=== PATIENT | male | born 1985 ===

== ENCOUNTER 2019-04-26 11:25 | Emergency (ER) | payer BC, SELFPAY ==
[2019-04-26 11:35] VITALS: BP 125/80; PULSE 78; RESP 18; TEMP 36.6; O2SAT 100
--- NOTE | 2019-04-26 12:48 | ED.NECK ---
HPI - Neck Pain/Injury General Chief Complaint: Neck Pain/Injury Stated Complaint: neck pain Time Seen by Provider: 04/26/19 12:48 Source: patient and RN notes reviewed Mode of arrival: ambulatory Limitations: no limitations History of Present Illness HPI Narrative: 34 year old male who presents to [facility] care with complaints of acute neck pain posterior aspect since with no known injury to neck. Patient states that pain has increased in the past 2 days and he went to the chiropractor yesterday and had heat and massage and adjustment with no decrease in his pain.Patient has strong handgrips and full mobility of bilaterally upper extremities admits to some discomfort radiating into left arm but severe pain stated at posterior neck.Patient has strong pulses to bilateral upper extremities with no numbness or tingling to arms or hands verbalized. Patient states that he has been taking Aleve and using heat to neck but continues to be in alot of pain and can't sleep. MD complaint: neck pain Onset (ago): day(s) (since ) Place: other (no known injury) Severity: severe Severity scale (1-10): 7 Duration: constant and progressively worsening Relieving factors: none Exacerbating factors: movement of neck Context: recent chiropractic manipulation and other (states no known injury prior to start of pain) Associated symptoms: other (some pain radiates at times to left arm) Treatments prior to arrival: naproxen and heat therapy Related Data Allergies Allergy/AdvReac Type Severity Reaction Status Date / Time No Known Allergies Allergy Verified 04/26/19 11:27 Review of Systems Review of Systems: Narrative: CONSTITUTIONAL: Denies fever, chills, or sweats. EYES: Denies visual changes, redness, or discharge. ENT: Denies rhinorrhea, congestion, sore throat, or otalgia. CARDIOVASCULAR: Deniies any chest pain, palpitations, or edema. RESPIRATORY: Denies cough or dyspnea. GASTROINTESTINAL: Denies abdominal pain, nausea, vomiting, or diarrhea. GENITOURINARY: Denies dysuria or hematuria. SKIN: Denies rash or itching. MUSCULOSKELETAL: Reports cervical spine pain with some pain to left arm. no other joint pain, or myalgia. NEUROLOGIC: Denies headache, numbness, or weakness. PSYCHIATRIC: Denies anxiety or depression. All systems reviewed & are unremarkable except as noted in HPI and below PMFSH Past Medical History Medical History (Updated 04/29/19 @ 20:21 by Claribel Wyatt NP) Herniation of cervical intervertebral disc with radiculopathy Family History Family History Other Diabetes mellitus Hypertension Social History Social History Smoking status: Never smoker Second hand tobacco smoke exposure: No Alcohol intake: current Gender identity (if verbalized by the patient): Male Comments At time of signature, agree with nursing past medical, surgical, social and family history. There is no relevant family history pertinent to the presenting complaint Exam Narrative: Exam Narrative: GENERAL: Well-appearing, well-nourished, and in acute distress. HEAD: Normocephalic, atraumatic. EYES: PERRLA and EOMI. ENT: Nares clear, no rhinorrhea or epistaxis. Mucous membranes moist. NECK: Supple.increase pain with movement of neck,pain posterior region middle with tightness to muscles noted, denies any known injury, some radiation of pain to left arm, strong handgrips bilaterally. CHEST: Clear to auscultation. No respiratory distress. HEART: Regular rate and rhythm. No murmur heard. Normal peripheral pulses. ABDOMEN: Soft, nontender, nondistended, normal active bowel sounds. EXTREMITIES: Normal range of motion. No edema. SKIN: Warm, dry, no rash. NEURO: No focal deficits. Alert and oriented x3. Course Vital Signs Vital signs: Vital Signs Temperature 36.6 C 04/26/19 11:35 Pulse Rate 78 04/26/19 11:35 Respiratory R
== END 2019-04-26 13:05 | disposition home or self-care (01) ==
PROVIDERS: Emergency Provider Registered Nurse; PCP Internal Medicine
DX: S16.1XXA Strain of muscle, fascia and tendon at neck level, initial encounter (principal); X58.XXXA Exposure to other specified factors, initial encounter
CPT/HCPCS: 99213; G0463

== ENCOUNTER 2021-02-23 08:06 | Outpatient (RCR) | payer BC, SELFPAY ==
[2021-02-23 08:35] VITALS: BP 148/90; PULSE 94; RESP 20; TEMP 36.4; O2SAT 99
[2021-02-23] MEDS: diphenhydrAMINE HCl CAP 25 MG CAPSULE PO (08:39)
[2021-02-23] MEDS: ACETAMINOPHEN 325 MG TABLET 650 MG PO (08:39)
[2021-02-23] MEDS: FAMOTIDINE 20 MG TABLET PO (08:39)
[2021-02-23 10:04] VITALS: BP 131/86
--- NOTE | 2021-02-24 08:43 | PC.NURSE ---
Called Mr Kirkland, he said he is doing fine this morning, only has a slight headache. He has no questions at this time.
== END 2021-02-23 17:00 ==
LOC: AMCINF 08:06
PROVIDERS: PCP Nurse Practitioner Family; Visit Provider Internal Medicine Hematology & Oncology
DX: U07.1 COVID-19 (principal)
CPT/HCPCS: A9270; M0245; Q0245

== ENCOUNTER 2023-09-19 15:33 | Emergency (ER) | payer BC, SELFPAY ==
--- NOTE | ~2023-09-19 | XR_ITS ---
EXAMINATION: XR chest 2V DATE: 09/19/2023 15:50 INDICATION: Chest pain. TECHNIQUE: Frontal and lateral views of the chest were obtained. COMPARISON: None. FINDINGS: There is no pneumonia, pleural effusion, or pneumothorax. The heart size is normal. There a re changes of disc replacement in cervical spine. IMPRESSION: 1. No acute cardiopulmonary disease. Reviewed, dictated and finalized at location E.
--- NOTE | 2023-09-19 15:34 | ECG_ITS ---
Test Date: 2023-09-19 15:42:13 Measurements Intervals [place] Rate: 123 P: 50 VT: 151 QRS: 37 QRSD: 108 T: 24 QT: 302 QTc: 434 Interpretive Statements SINUS TACHYCARDIA DELAYED PRECORDIAL R/S TRANSITION CONSIDER INFERIOR INFARCT, AGE INDETERMINATE ABNORMAL ECG No previous ECG available for comparison Electronically Signed On 09-19-2023 15:51:06 CDT by Osman Garrison D.O.
[2023-09-19 15:37] VITALS: BP 148/86; PULSE 126; RESP 18; TEMP 36.2; O2SAT 98
[2023-09-19 15:54] LABS: Basophils Percent Auto 0.5 % (0.2-1.2); Eosinophils Absolute Auto 0.1 K/mm3 (0-0.3); Eosinophils Percent Auto 0.7 % (0-4.4); Hematocrit 47.5 % (42.0-52.0); Hemoglobin 16.4 g/dL (14.0-18.0); Immature Granulocyte Absolute 0.06 K/mm3 (0.00-0.031); Immature Granulocyte Percent A 0.7 % (0-0.5); Lymphocytes Absolute Auto 2.19 K/mm3 (0.9-3.2); Lymphocytes Percent Auto 27.3 % (18.3-44.2); Mean Corpuscular HGB Conc 34.5 g/dl (32-36); Mean Corpuscular Hemoglobin 29.9 pg (26-34); Mean Corpuscular Volume 86.7 fl (80-100); Mean Platelet Volume 10.5 fl (7.4-10.4); Monocytes Absolute Auto 0.5 K/mm3 (0.1-0.6); Monocytes Percent Auto 5.9 % (2.6-8.5); Neutrophils Absolute Auto 5.2 K/mm3 (1.3-6.7); Neutrophils Percent Auto 64.9 % (45.5-73.1); Platelet Count Result 192 k/mm3 (150-375); Red Blood Count 5.48 M/mm3 (4.6-6.20); Red Cell Distribution Width 12.3 % (11.5-14.5)
[2023-09-19 16:04] LABS: Alanine Aminotransferase 55 U/L (6-50); Albumin Level 4.8 g/dL (3.5-5.1); Alkaline Phosphatase 58 U/L (38-126); Anion Gap 14 mmol/L (4-12); Aspartate Amino Transferase 38 U/L (17-59); Bilirubin,Total 0.8 mg/dL (0.2-1.3); Blood Urea Nitrogen 14 mg/dL (9-20); Calcium 9.2 mg/dL (8.4-10.2); Carbon Dioxide 27 mmol/L (22-30); Chloride 99 mmol/L (98-107); Estimated CRCL calculation 142 ml/min; Estimated Glomerular Filt Rate > 60; Glucose 158 mg/dL (65-110); Lipase 104 U/L (23-300); Potassium 3.6 mmol/L (3.4-5.0); Sodium 140 mmol/L (137-145)
[2023-09-19 16:05] LABS: INR 0.9; Prothrombin Time 12.9 Seconds (11.1-14.7)
[2023-09-19 16:06] LABS: Partial Thromboplastin Time 26.2 Seconds (22.3-36.8)
[2023-09-19 16:10] VITALS: PULSE 111
[2023-09-19 16:15] LABS: Troponin I < 0.012 ng/mL (0.000-0.034)
[2023-09-19] MEDS: KETOROLAC 30 MG/ML VIAL (*BKC) IV PUSH (16:36)
[2023-09-19 16:37] VITALS: BP 129/88; PULSE 112; RESP 15; O2SAT 98
[2023-09-19] MEDS: ASPIRIN 81 MG CHEWABLE TABLET 324 MG PO (16:37)
[2023-09-19 16:41] LABS: D Dimer 0.33 ug/mL (<0.48)
--- NOTE | 2023-09-19 17:29 | ED.GENADULT ---
HPI - General Adult General Chief complaint: Chest Pain Stated complaint: chest tightness Time Seen by Provider: 09/19/23 16:09 History of Present Illness HPI narrative: Manish Kirkland is 38 y/o male with no PMHx who presents with reports of having onset of left sided chest tightness that might of moved down his left arm while he was driving today. He states that now the pain has improved rates the severity at a 1 o 2 / 10. states he felt a little short of breath No recent illness / no PMHx / not on any medications Related Data Home Medications Medication Instructions Recorded Confirmed No Home Medications 02/23/21 02/23/21 Allergies Allergy/AdvReac Type Severity Reaction Status Date / Time No Known Allergies Allergy Verified 09/19/23 16:10 Review of Systems Review of Systems: CONSTITUTIONAL: Denies fever, chills, or sweats. EYES: Denies visual changes, redness, or discharge. ENT: Denies rhinorrhea, congestion, sore throat, or otalgia. CARDIOVASCULAR: + chest tightness that started while driving today no palpitations, or edema. RESPIRATORY: Denies cough, reports feeling a little short of breath earlier during event GASTROINTESTINAL: Denies abdominal pain, nausea, vomiting, or diarrhea. GENITOURINARY: Denies dysuria or hematuria. SKIN: Denies rash or itching. MUSCULOSKELETAL: Denies back pain, joint pain, or myalgia. NEUROLOGIC: Denies headache, numbness, dizziness, or weakness. PSYCHIATRIC: Denies anxiety or depression. PMFSH Past Medical History Medical History Herniation of cervical intervertebral disc with radiculopathy Family History Family History Other Diabetes mellitus Hypertension Social History Social History Smoking status: Never smoker Second hand tobacco smoke exposure: No Alcohol intake: current Gender identity (if verbalized by the patient): Male Spiritual care concerns: No Exam Narrative: GENERAL: Well-appearing, well-nourished, and in no acute distress. HEAD: Normocephalic, atraumatic. EYES: PERRLA and EOMI. ENT: Nares clear, no rhinorrhea or epistaxis. Mucous membranes moist. Oropharynx without tonsillar hypertrophy exudate or other lesions. NECK: Supple. No adenopathy or masses. No carotid bruits or JVD CHEST: Clear to auscultation. No respiratory distress. No wheezes rales or rhonchi HEART: Regular rate and rhythm. No murmur heard. Normal peripheral pulses. ABDOMEN: Soft, nontender, nondistended, normal active bowel sounds. EXTREMITIES: Normal range of motion. No edema. SKIN: Warm, dry, no rash. NEURO: No focal deficits. Alert and oriented x3. PSYCH: Normal mood and affect. Course Vital Signs Vital signs: Vital Signs Temperature 36.2 C L 09/19/23 15:37 Pulse Rate 126 H 09/19/23 15:37 Respiratory Rate 18 09/19/23 15:37 Blood Pressure 148/86 H 09/19/23 15:37 Pulse Oximetry 98 09/19/23 15:37 Temperature 36.2 C L 09/19/23 15:37 Pulse Rate 96 09/19/23 20:18 Respiratory Rate 15 09/19/23 20:18 Blood Pressure 154/104 H 09/19/23 20:18 Pulse Oximetry 99 09/19/23 20:18 Oxygen Delivery Room Air 09/19/23 16:07 Medical Decision Making MDM Narrative Medical decision making narrative: 38 y/o male who presents with chest tightness that started while at rest Pain has improved on its own Heart score of 1 CBC- unremarkable CMP gap 14, glucose 158, ALT 55 Trop 1 - Negative Trop 2- Negative Lipase- Negative 104 DDimer - Negative 0.33 Chest xr 1. No acute cardiopulmonary disease. EKG - Sinus Tach Patient re-evaluated still feeling improved, denies any new symptoms heart rate has improved to low 90s sinus Updated pt on results and plan for d/c home He has a PCP that he states he will call tomorrow to make a follow up appointment Will also provide cardi
--- NOTE | 2023-09-19 18:29 | ECG_ITS ---
Test Date: 2023-09-19 18:39:09 Measurements Intervals [place] Rate: 98 P: 34 SC: 151 QRS: 34 QRSD: 109 T: 16 QT: 350 QTc: 448 Interpretive Statements SINUS RHYTHM DELAYED PRECORDIAL R/S TRANSITION CONSIDER INFERIOR INFARCT, AGE INDETERMINATE BASELINE WANDER- II, III, AVF ABNORMAL ECG Compared to ECG 09/19/2023 15:42:13 HEART RATE HAS DECREASED Electronically Signed On 09-19-2023 20:27:09 CDT by Osman Garrison D.O.
[2023-09-19 19:02] VITALS: BP 153/108; PULSE 108; RESP 20; O2SAT 98
[2023-09-19 20:18] VITALS: BP 154/104; PULSE 96; RESP 15; O2SAT 99
[2023-09-19 20:23] LABS: Troponin I < 0.012 ng/mL (0.000-0.034)
[2023-09-19 20:30] VITALS: BP 148/102; PULSE 94; RESP 15; O2SAT 100
== END 2023-09-19 20:31 | disposition home or self-care (01) ==
PROVIDERS: Student in an Organized Health Care Education/Training Program; Emergency Provider Nurse Practitioner Family; PCP Registered Nurse
DX: R07.89 Other chest pain (principal)
CPT/HCPCS: 36415; 71046; 80053; 83690; 84484; 85025; 85380; 85610; 85730; 93005; 96374; 99284; A9270; J1885